=== PATIENT | male | born 1945 | race Caucasian/White ===

== ENCOUNTER → 2018-01-04 | Outpatient (CLI) | payer OTHER ==
[~2018-01-04] MED LIST: IOPAMIDOL 370 MG/ML 200 ML INFUS..BTL INJ ONE; SODIUM CHLORIDE 0.9% 50ML 50 ML ONE
[2018-01-04 10:10] LABS: CREATININE, SERUM 1.22 mg/dL (0.72-1.25)
--- NOTE | 2018-01-04 12:03 | Diagnostic Imaging Report ---
EXAM: CT Pelvis WITH contrast INDICATION: \[id number] \S\1100 \S\MALIGNANT NEOPALSM OF PROSTATE COMPARISON: None. TECHNIQUE: Pelvis were scanned utilizing a multidetector helical scanner from the iliac crest to the pubic symphysis after administration of IV contrast. Coronal and sagittal reformations were obtained. Routine protocol was performed. Scan was performed when during portal venous phase. IV CONTRAST: 100 mL of Isovue-370 ORAL CONTRAST: Water COMPLICATIONS: None RADIATION DOSE: Total DLP: 356.36 mGy*cm Estimated effective dose: (DLP x 0.015 x size factor) mSv CTDIvol has been reviewed. It is below the limits set by the Radiation Protocol Committee (RPC). FINDINGS: LINES and TUBES: None. GI TRACT: Visualized bowel loops are unremarkable. No evidence of bowel obstruction. There are few sigmoid diverticula without evidence of diverticulitis. Appendix is normal. PELVIC ORGANS/BLADDER: Prostate is unremarkable by CT criteria (placement that CT is not the modality of choice for evaluation of local prostate disease). There is coarse prostate calcification. Bladder is within normal limits. LYMPH NODES: No pelvic lymphadenopathy. VESSELS: Mild aortoiliac atherosclerotic disease. PERITONEUM / RETROPERITONEUM: No free air or fluid. BONES: Increased sclerosis of the left iliac (series 2, image 19). Degenerative changes and facet arthropathy at the L4-L5 and L5-S1. SOFT TISSUES: Bilateral small fat-containing direct inguinal hernia. IMPRESSION: 1. No pelvic lymphadenopathy. 2. Mildly increased ill-defined sclerosis of the left iliac bone. Recommend bone scan for further evaluation. Signed by: Dr. Rajesh Tse MD on 01/04/2018 12:00 PM
--- NOTE | 2018-01-04 18:17 | Diagnostic Imaging Report ---
Bone Scan, delayed phase INDICATION: Malignant neoplasm of prostate COMPARISON: CT pelvis 01/04/2018 REPORT: Approximately 3 hours following intravenous administration of 25 mCi of Tc-99m MDP, delayed total body images in the anterior and posterior projections and selected spot images were obtained. Foci of moderately increased tracer are seen in T4, T8, left 4th rib anteriorly and in the right intertrochanteric femur. Foci of markedly increased tracer are seen in T10, T11 and in the medial aspect of the left iliac wing. Degenerative changes are noted in the lower lumbar spine, bilateral shoulders, knees and right ankle. Otherwise, distribution of tracer activity is unremarkable throughout the skeletal system. No abnormal accumulation of tracer is seen in the soft tissues or urinary tract. The patient was not able to adequately empty his bladder on voiding immediately prior to imaging. The full bladder obscures the inferior sacrum. IMPRESSION: 1. Acute osteoblastic processes in T10, T11 and the medial aspect of the left iliac wing are very worrisome for metastatic bone disease. 2. Acute osteoblastic processes in T4 and T8 and the intertrochanteric right femur are indeterminate and could represent degenerative change versus bone metastases. 3. Acute osteoblastic lesion in the left 4th rib anterolaterally may represent healed rib fracture versus early bone metastasis. Signed by: Dr. Susan Preston M.D. on 01/04/2018 6:14 PM
== END ==
LOC: NM 09:01
PROVIDERS: ATTEND Urology
DX: C61 Malignant neoplasm of prostate (principal)
CPT/HCPCS: 36415; 72193; 78306; 82565; 84520; A9503; Q9967